=== PATIENT | female | born 1990 | race Caucasian/White ===

== ENCOUNTER 2020-03-02 05:31 | Outpatient (RCR) | payer BC ==
[~2020-03-02] VITALS: Ht 167.7 cm; Wt 122.7 kg
[~2020-03-02 05:31] MED LIST: PNV1TABL9 PO
--- NOTE | 2020-03-05 10:45 | History & Physical ---
History and Physical Date Seen by Provider: Mar 06, 2020 Time Seen by Provider: 07:15 This patient is a 29 year old female G1 with PIH and with mal- presentation (transverse lie). She is admitted on March 06, 2020 for primary delivery. Her GBS culture after 35 weeks gestation was POSITIVE. She denies ROM or Bleeding. Allergies - none Medications - PNV's Medical/Social/ and Surgical histories are per the PN records HEENT - wnl Neck - supple with No LA and No TH Abd gravid - morbidly obese - NT Ext no C/C/ mild pretibial edema and no morgan sign Pelvic exam is deferred A/P TIUP at 38 weeks gestation with PIH and with malpresentation - plan is for admission and primary delivery . Surgical risks, recovery, complications, and follow-up have been fully discussed. Patient's questions have been answered and she is ready to proceed. 38 weeks with PIH and transverse lie Allergies and Home Medications Allergies Coded Allergies: No Known Drug Allergies (Unverified , 03/06/20) Home Medications Pnv Cmb#21/Iron/Folic Acid 1 Each Tablet, 1 EACH PO DAILY, (Reported) Patient Home Medication List Home Medication List Reviewed: Yes NCIOLAS TAYLOR MD Mar 05, 2020 10:45
== END 2020-03-02 09:08 | disposition home or self-care (01) ==
LOC: PREOP 05:31
PROVIDERS: ATTEND Obstetrics & Gynecology
DX: Z01.812 Encounter for preprocedural laboratory examination (principal); O13.9 Gestational [pregnancy-induced] hypertension without significant proteinuria, unspecified trimester; O99.210 Obesity complicating pregnancy, unspecified trimester; O99.019 Anemia complicating pregnancy, unspecified trimester; Z3A.00 Weeks of gestation of pregnancy not specified; Z20.822 Contact with and (suspected) exposure to COVID-19
CPT/HCPCS: 87635

== ENCOUNTER 2020-03-06 06:06 | Inpatient (IN) | payer BC ==
[2020-03-06] VITALS (10 sets, daily range): BP systolic 97–124; BP diastolic 33–84
[~2020-03-06] VITALS: Ht 167.7 cm; Wt 125.0 kg
[~2020-03-06 06:06] MED LIST changes: +CITRIC ACID/SOB CIT (BICITRA) 30 ML UDC ONE; +FAMOTIDINE 20MG/2ML IV (PEPCID) ONE; +LACTATED RINGERS 1,000 ML IV ONE; +METOCLOPRAMIDE INJ 10 MG/2 ML (REGLAN) ONE; +ceFAZolin 2 GM IV Premixed 50 ML ONE; +metroNIDAZOLE 500MG/100ML IVPB 100 ML ONE
--- NOTE | 2020-03-06 06:06 | NUR ---
NAOMI PAIGE presented to unit via ambulatory from home, accompanied by , with c/o MORBID OBESITY, PIH. NAOMI PAIGE weighed, gowned, voided, and to bed. EFHM and TOCO applied, VS taken. NAOMI PAIGE oriented to bed controls, call light, TV, heat, and A/C controls.
[2020-03-06] MEDS ORDERED: metroNIDAZOLE 500MG/100ML IVPB 100 ML IV ONE ×2 (06:30)
[2020-03-06] MEDS ORDERED: ceFAZolin 2 GM IV Premixed 50 ML IV ONE (06:30)
[2020-03-06] MEDS ORDERED: D5 LR IV SOLUTION 1,000 ML IV SCH ×2 (06:30→09:30)
[2020-03-06] MEDS ORDERED: ceFAZolin INJECTION 2,000 MG in WATER (STERILE) FOR INJECTION 10 ML IV ONE (06:30)
[2020-03-06] MEDS ORDERED: LACTATED RINGERS 1,000 ML IV PRN (07:00)
[2020-03-06] MEDS ORDERED: METOCLOPRAMIDE INJ 10 MG/2 ML (REGLAN) IV ONE (07:00)
[2020-03-06] MEDS ORDERED: CITRIC ACID/SOB CIT (BICITRA) 30 ML UDC PO ONE (07:00)
[2020-03-06] MEDS: LACTATED RINGERS 1,000 ML IV PRN ×2 (07:01→07:35)
[2020-03-06 07:02] LABS: BASOPHILS % (AUTO) 0 % (0-10); EOSINOPHILS # (AUTO) 0.1 10^3/uL (0.0-0.3); EOSINOPHILS % (AUTO) 1 % (0-10); HEMATOCRIT 36 % (35-52); HEMOGLOBIN 11.8 g/dL (11.5-16.0); LYMPHOCYTES # (AUTO) 2.2 10^3/uL (1.0-4.0); LYMPHOCYTES % (AUTO) 19 % (12-44); MEAN CORPUSCULAR HEMOGLOBIN 29 pg (25-34); MEAN CORPUSCULAR HGB CONC 33 g/dL (32-36); MEAN CORPUSCULAR VOLUME 89 fL (80-99); MEAN PLATELET VOLUME 10.6 fL (9.0-12.2); MONOCYTES # (AUTO) 0.7 10^3/uL (0.0-1.0); MONOCYTES % (AUTO) 6 % (0-12); NEUTROPHILS # (AUTO) 8.4 10^3/uL (1.8-7.8); NEUTROPHILS % (AUTO) 73 % (42-75); PLATELET COUNT 242 10^3/uL (130-400); WHITE BLOOD COUNT 11.5 10^3/uL (4.3-11.0)
--- NOTE | 2020-03-06 07:07 | NUR ---
Dr. Gorman at bedside.
[2020-03-06] MEDS ORDERED: OXYTOCIN PRE-MIX DRIP 1,000 ML IV ONE (07:09)
[2020-03-06] MEDS ORDERED: fentaNYL INJECTION 100 MCG/2 ML AMP ONE (07:09)
[2020-03-06] MEDS ORDERED: FAMOTIDINE 20MG/2ML IV (PEPCID) IV ONE (07:15)
--- NOTE | 2020-03-06 07:17 | NUR ---
Dr. De Guzman at bedside.
[2020-03-06] MEDS ORDERED: PHENYLEPHRINE 100 MCG/ML 10 ML (ANESTHESIA) SYR ONE (07:48)
[2020-03-06] MEDS ORDERED: ONDANSETRON 4 MG/2 ML (SDV) Z0FRAN ONE (07:57)
[2020-03-06] MEDS ORDERED: BUPIVACAINE 0.5% 30 ML (SENSORCAINE) VIAL ONE (08:04)
--- NOTE | 2020-03-06 08:26 | OPERATIVE REPORT ---
DATE OF SERVICE: 03/06/2020 PREOPERATIVE DIAGNOSIS: A 39-week with PIH and a transverse lie. POSTOPERATIVE DIAGNOSIS: A 39-week with PIH and a transverse lie. OPERATIVE PROCEDURE: Primary low transverse delivery of a viable male with Apgars of 9 and 9 at 1 and 5 minutes respectively, weight of 8 pounds 5 ounces, time of 07:45 and a cord blood pH of 7.30. OPERATIVE DESCRIPTION: With the patient in the supine position under satisfactory spinal analgesia, she was prepped and draped in the usual fashion for abdominal surgery. The patient had a large panniculus. The abdomen was elevated by placing towel clips in the right and left upper part of the lower quadrant on each side after prepping and then those were secured at the head of the bed to expose the lower abdomen. The patient was draped, a Pfannenstiel incision was made through the skin with scalpel, the patient's abdomen entered in the usual manner. Bladder retractor placed in position, clean scalpel was used to make a 4 cm hysterotomy incision transversely across the lower uterine segment. That was extended bluntly. Copious clear fluid was released on hysterotomy. The infant was in a back down transverse lie with the head on the right, internal podalic version was accomplished rotating the fetus until the legs could be extracted through the incision and then breech extraction was performed easily in the usual manner. The was bulb suctioned on delivery, the umbilical cord was doubly clamped and cut and the infant passed to the pediatric nurse in attendance for delivery. Cord bloods were obtained. The placenta delivered spontaneously Parson. It was a large bilobed placenta, but otherwise normal. It was sent to pathology for permanent section. The uterus was exteriorized and interior wiped clean with a wet laparotomy sponge. Uterine incision was closed with a running locked suture of 2-0 Vicryl. Hemostasis was satisfactory, but the uterus was quite boggy failing to respond to massage or to IV Pitocin. A modified B-Sood suture was placed using chromic sutures in the usual modified manner. This compressed the uterus nicely and controlled any further blood loss. The uterus was returned to abdominal cavity. All blood clot and debris were removed from the abdominal cavity. With sponge and needle counts correct and hemostasis assured, the anterior parietal peritoneum was closed with running suture of 2-0 Vicryl. Rectus muscles were closed with that suture as well. The rectus fascia was closed with 2-0 Vicryl, subcutaneous tissue was closed with 2-0 Vicryl and the skin was stapled. Sponge and needle counts were correct on completion of the procedure. Estimated blood loss was around 500 mL. The patient tolerated the procedure well and was transferred to the recovery room in stable condition. The had been taken stable to the full term nursery under the care of the pediatric nurse. Job ID: [id number] DocumentID: [id number] Dictated Date: 03/06/2020 08:09:55 Software Support Specialist Date: 03/06/2020 08:25:43 Dictated By: NICOLAS TAYLOR MD
[2020-03-06] MEDS ORDERED: OXYTOCIN PRE-MIX DRIP 500 ML IV ONE (08:34)
--- NOTE | 2020-03-06 09:12 | NUR ---
Pt transferred from recovery room to [facility] via bed in stable condition accompanied by this Rn, advisor consultant, infant, and s/o. Oriented to room, ice water provided. sales development consultant at bedside to assist with breast feeding. No further needs at this time.
[2020-03-06] MEDS ORDERED: TETANUS,DIPTH,PERTUSS P/F (BOOSTRIX) 0.5 ML VIAL IM ONE (09:30)
[2020-03-06] MEDS ORDERED: MEASLES,MUMPS,RUBELLA 1 EA INJ SC ONE (09:30)
[2020-03-06] MEDS ORDERED: fentaNYL INJECTION 100 MCG/2 ML AMP IVP PRN (09:30)
[2020-03-06] MEDS ORDERED: OXYTOCIN PRE-MIX DRIP 500 ML IV SCH (09:30)
[2020-03-06] MEDS ORDERED: ONDANSETRON 4 MG/2 ML (SDV) Z0FRAN IVP PRN (09:30)
[2020-03-06] MEDS: KETOROLAC 30 MG/ML VIAL IVP SCH ×3 (11:35→23:51)
--- NOTE | 2020-03-06 14:00 | NUR ---
Pt up to bathroom, unable to void. +pericare, gown, panties and pad applied. Fresh ice water provided. No further needs at this time.
[2020-03-06] MEDS: oxyCODONE/APAP 10/325MG (PERCOCET 10) TABLET PO PRN ×2 (15:18→20:42)
--- NOTE | 2020-03-06 16:00 | NUR ---
Pt up to bathroom. Small void, 300cc. No clots noted. +pericare, new panties and pad applied. Back to bed. Vitals obtained.
[2020-03-06] MEDS: DOCUSATE SODIUM 100 MG (COLACE) CAP PO SCH (20:41)
[2020-03-07] MEDS: oxyCODONE/APAP 10/325MG (PERCOCET 10) TABLET PO PRN ×3 (02:38→14:00)
[2020-03-07] MEDS: KETOROLAC 30 MG/ML VIAL IVP SCH (05:09)
[2020-03-07 05:10] VITALS: BP 132/65
--- NOTE | 2020-03-07 06:57 | Anesthesia-Regional Post-Op ---
Regional Patient Condition Mental Status: Alert, Oriented x3 Circulation: Same as Pre-Op Headache: Absent Sensation: Full Recovery Motor Block: Absent Post Op Complications Complications None Follow Up Care/Instructions Patient Instructions None needed. Anesthesia/Patient Condition Patient is doing well, no complaints, stable vital signs, no apparent adverse anesthesia problems. No complications reported per nursing. D/C home per [facility] Criteria: No CRISTAL MOLINA CRNA Mar 07, 2020 06:57
--- NOTE | 2020-03-07 07:51 | Progress Note ---
Standard Progress Note Progress Notes/Assess & Plan Date Seen by a Provider: Mar 07, 2020 Time Seen by a Provider: 07:49 Progress/Assessment & Plan This patient is without complaint. She is ambulating, voiding, tolerating oral intake well and has good pain control. Patient denies chest pain, denies shortness of breath, and denies headache. Vital Signs Date Time Temp Pulse Resp B/P (MAP) Pulse Ox O2 Delivery O2 Flow Rate FiO2 03/07/20 05:10 36.9 93 18 132/65 (87) 97 03/06/20 23:55 37.1 89 18 108/60 (76) 96 03/06/20 20:00 36.9 99 18 108/59 (75) 97 03/06/20 18:07 37.3 94 16 101/58 (72) 96 Room Air 03/06/20 16:17 37.0 88 16 124/69 (87) 97 Room Air 03/06/20 09:37 36.4 64 16 104/57 (73) 100 Room Air 03/06/20 09:00 36.3 16 98/84 (89) 99 Room Air 03/06/20 09:00 Room Air 03/06/20 08:45 Room Air 03/06/20 08:45 36.5 16 103/74 (84) 99 Room Air 03/06/20 08:30 Room Air 03/06/20 08:30 36.5 16 97/53 (68) 99 Room Air 03/06/20 08:12 36.4 16 104/33 (56) 97 Room Air 03/06/20 08:12 Room Air I & O 03/07/20 07:00 Intake Total 3110 ml Output Total 900 ml Balance 2210 ml Vital signs are stable. Patient is afebrile. The abdomen is benign. The surgical incision is clean dry and intact. Fundus is firm below the umbilicus and nontender. Extremities show no clubbing or cyanosis. There is no Homans' sign. Assessment and plan postoperative day #1 status post primary delivery doing well. Plan is for routine convalescent care Final Diagnosis Primary delivery NICOLAS TAYLOR MD Mar 07, 2020 07:51
[2020-03-07] MEDS ORDERED: DCS100C PO (07:52)
[2020-03-07] MEDS ORDERED: IBUP-1780 PO (07:52)
[2020-03-07] MEDS ORDERED: OXYC1TAB12 PO (07:52)
--- NOTE | 2020-03-07 07:53 | Discharge Inst-Surgical ---
Discharge Inst-Surgical Depart Medication/Instructions New, Converted or Re-Newed RX: RX on Chart Consults/Follow Up Patient Instructions: As directed Orders & Referrals Follow Up Appt: RTC 1 week for incision check. Call to make follow up appt. for patient in 4 weeks. Wound Care: Remove priyank, apply benzoin and steri strips. Activity Per routine post instructions. Please call in RX to patient pharmacy. Diet as tolerated Patient may shower or tub bathe as desired. Continue home meds Activity Activity as Tolerated: No Diet Discharge Diet: No Restrictions NICOLAS TAYLOR MD Mar 07, 2020 07:53
[2020-03-07] MEDS: DOCUSATE SODIUM 100 MG (COLACE) CAP PO SCH ×2 (08:15→20:07)
--- NOTE | 2020-03-07 08:15 | NUR ---
Physical shift assessment completed, vital obtained, scheduled meds given. No further needs at this time.
[2020-03-07 08:16] VITALS: BP 102/57
[2020-03-07] MEDS ORDERED: IBUPROFEN 800 MG (MOTRIN) TAB PO ONE (11:24)
[2020-03-07] MEDS: IBUPROFEN 800 MG (MOTRIN) TAB PO SCH ×3 (11:29→23:41)
[2020-03-07 16:02] VITALS: BP 114/58
[2020-03-07 20:03] VITALS: BP 108/56
--- NOTE | 2020-03-07 20:10 | NUR ---
Shift assessment done, see intervention. VSS. Mother reports minimal bleeding and no clots expressed. Denies pain. Denies any needs or concerns at this time.
[2020-03-08 01:30] VITALS: BP 110/58
[2020-03-08 05:26] VITALS: BP 110/56
[2020-03-08] MEDS: IBUPROFEN 800 MG (MOTRIN) TAB PO SCH ×2 (05:28→11:51)
--- NOTE | 2020-03-08 07:57 | NUR ---
DR. TAYLOR TO PT'S BEDSIDE.
--- NOTE | 2020-03-08 08:02 | Progress Note ---
Standard Progress Note Progress Notes/Assess & Plan Date Seen by a Provider: Mar 08, 2020 Time Seen by a Provider: 08:02 Progress/Assessment & Plan This patient is without complaint. She is ambulating, voiding, tolerating oral intake well and has good pain control. Patient denies chest pain, denies shortness of breath, and denies headache. Vital Signs Date Time Temp Pulse Resp B/P (MAP) Pulse Ox O2 Delivery O2 Flow Rate FiO2 03/07/20 05:10 36.9 93 18 132/65 (87) 97 03/06/20 23:55 37.1 89 18 108/60 (76) 96 03/06/20 20:00 36.9 99 18 108/59 (75) 97 03/06/20 18:07 37.3 94 16 101/58 (72) 96 Room Air 03/06/20 16:17 37.0 88 16 124/69 (87) 97 Room Air 03/06/20 09:37 36.4 64 16 104/57 (73) 100 Room Air 03/06/20 09:00 36.3 16 98/84 (89) 99 Room Air 03/06/20 09:00 Room Air 03/06/20 08:45 Room Air 03/06/20 08:45 36.5 16 103/74 (84) 99 Room Air 03/06/20 08:30 Room Air 03/06/20 08:30 36.5 16 97/53 (68) 99 Room Air 03/06/20 08:12 36.4 16 104/33 (56) 97 Room Air 03/06/20 08:12 Room Air I & O 03/07/20 07:00 Intake Total 3110 ml Output Total 900 ml Balance 2210 ml Vital signs are stable. Patient is afebrile. The abdomen is benign. The surgical incision is clean dry and intact. Fundus is firm below the umbilicus and nontender. Extremities show no clubbing or cyanosis. There is no Homans' sign. Assessment and plan postoperative day #1 status post primary delivery doing well. Plan is for routine convalescent care March 08, 2020 Patient is without complaint. She is ambulating, voiding, tolerating oral intake well and has good pain control. Patient is requesting discharge home. Vital Signs Date Time Temp Pulse Resp B/P (MAP) Pulse Ox O2 Delivery O2 Flow Rate FiO2 03/08/20 05:26 36.8 89 18 110/56 (74) 98 Room Air 03/08/20 01:30 36.9 94 18 110/58 (75) 96 Room Air 03/07/20 20:03 37.0 91 18 108/56 (73) 97 Room Air 03/07/20 16:02 37.2 89 16 114/58 (76) 97 Room Air 03/07/20 08:16 36.9 89 16 102/57 (72) 97 Room Air I & O 03/08/20 07:00 Intake Total 500 ml Output Total 250 ml Balance 250 ml Vital signs are stable. Patient is afebrile. The abdomen is benign. The surgical incision is clean dry and intact. Fundus is firm below the umbilicus and nontender. Extremities show no clubbing or cyanosis. There is no Homans' sign. Assessment and plan postoperative day #2 status post primary delivery at 39 weeks doing well. Plan is for discharge home with follow-up in clinic Final Diagnosis 39-week primary delivery NICOLAS TAYLOR MD Mar 08, 2020 08:02
[2020-03-08] MEDS: DOCUSATE SODIUM 100 MG (COLACE) CAP PO SCH (08:23)
[2020-03-08 08:25] VITALS: BP 121/60
--- NOTE | 2020-03-08 08:30 | NUR ---
PT SITTING UP IN THE CHAIR, HOLDING INFANT. MED GIVEN PO; SEE EMAR FOR FURTHER. VS OBTAINED. INITIAL SHIFT ASSESSMENT COMPLETED; SEE INTERVENTION FOR FURTHER. NO NEEDS VOICED. CALL LIGHT WITHIN REACH.
[2020-03-08] MEDS: oxyCODONE/APAP 10/325MG (PERCOCET 10) TABLET PO PRN (11:52)
--- NOTE | 2020-03-08 11:52 | NUR ---
MEDS GIVEN PO; SEE EMAR FOR FURTHER. PLANNING TO REMOVE KIT SOON.
--- NOTE | 2020-03-08 11:58 | NUR ---
DISCHARGE PAPERS PROVIDED AND REVIEWED WITH PT, PT VERBALIZES UNDERSTANDING AND DENIES ANY QUESTIONS AT THIS TIME. PAPER SIGNED.
--- NOTE | 2020-03-08 12:48 | NUR ---
KIT REMOVED. BENZOIN AND STERI STRIPS APPLIED OVER INCISION. PT TOLERATED WELL.
--- NOTE | 2020-03-08 14:00 | NUR ---
PT DISCHARGED FROM -308 TO PERSONAL AUTO VIA W/C IN STABLE CONDITION ACC BY THIS RN, S/O AND INFANT.
[2020-03-11] MEDS ORDERED: IBUPROFEN 800 MG (MOTRIN) TAB PO SCH
== END 2020-03-08 14:00 | disposition home or self-care (01) | DRG 788 ==
LOC: LDRP 06:06
PROVIDERS: ADMIT Obstetrics & Gynecology; ATTEND Obstetrics & Gynecology
PROC: 10D00Z1 Extraction of Products of Conception, Low, Open Approach (ICD-10-PCS; principal; 2020-03-06 07:21)
DX: O13.4 Gestational [pregnancy-induced] hypertension without significant proteinuria, complicating childbirth (principal); Z3A.39 39 weeks gestation of pregnancy; Z37.0 Single live birth; O99.214 Obesity complicating childbirth; E66.01 Morbid (severe) obesity due to excess calories; O32.2XX0 Maternal care for transverse and oblique lie, not applicable or unspecified
CPT/HCPCS: 36415; 85025; 86850; 86900; 86901; 87081; 88307

== ENCOUNTER 2022-12-12 08:10 | Emergency (ER) | payer OTHER, BC ==
[~2022-12-12 08:10] MED LIST changes: -CITRIC ACID/SOB CIT (BICITRA) 30 ML UDC ONE; +DOCU-239 PO; -FAMOTIDINE 20MG/2ML IV (PEPCID) ONE; +IBUP-1780 PO; -LACTATED RINGERS 1,000 ML IV ONE; -METOCLOPRAMIDE INJ 10 MG/2 ML (REGLAN) ONE; +OXYC1TAB12 PO; -ceFAZolin 2 GM IV Premixed 50 ML ONE; -metroNIDAZOLE 500MG/100ML IVPB 100 ML ONE
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
[2022-12-12] MEDS ORDERED: IBUPROFEN 600 MG TABLET PO ONE (10:00)
--- NOTE | 2022-12-12 10:00 | Diagnostic Imaging Report ---
EXAMINATION: Right knee radiographs, 3 views. COMPARISON: None. HISTORY: 31-year-old female, right knee pain. FINDINGS: There is no identified acute fracture. There is no knee joint effusion. Joint spaces are well preserved. IMPRESSION: 1. Unremarkable radiographs of the right knee. Dictated by: Dictated on workstation # [id number]
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
[2022-12-12 10:14] VITALS: BP 133/85
== END 2022-12-12 10:17 | disposition home or self-care (01) ==
LOC: EDUNIT# 08:10 → ER 08:16
DX: S13.4XXA Sprain of ligaments of cervical spine, initial encounter (principal); S80.01XA Contusion of right knee, initial encounter; T21.01XA Burn of unspecified degree of chest wall, initial encounter; Z79.3 Long term (current) use of hormonal contraceptives; V89.2XXA Person injured in unspecified motor-vehicle accident, traffic, initial encounter; W22.11XA Striking against or struck by driver side automobile airbag, initial encounter; Y92.410 Unspecified street and highway as the place of occurrence of the external cause
CPT/HCPCS: 70450; 71045; 72125; 73562; 84703